=== PATIENT | female | born 1950 | race Caucasian/White ===

== ENCOUNTER 2017-03-15 10:33 | Emergency (ER) | payer OTHER ==
[~2017-03-15] VITALS: Ht 175.3 cm; Wt 79.8 kg
[2017-03-15 10:50] VITALS: BP 130/73; Ht 175.3 cm; Wt 79.8 kg
== END 2017-03-15 15:30 | disposition left against medical advice (07) ==
LOC: ED 10:33
DX: Z53.21 Procedure and treatment not carried out due to patient leaving prior to being seen by health care provider (principal)

== ENCOUNTER 2020-05-27 17:04 | Emergency (ER) | payer OTHER ==
[~2020-05-27] VITALS: Ht 172.7 cm; Wt 81.2 kg
[2020-05-27 18:50] LABS: BASOPHIL % 1.5 % (0.2-1.3); PLATELET COUNT 212 x10^3mcL (179-408); RED CELL DISTRIBUTION WIDTH 13.8 % (12.3-17.7)
[2020-05-27 18:58] LABS: CALCIUM 9.2 mg/dL (8.5-10.1); CARBON DIOXIDE 28.2 mmol/L (21-32); CHLORIDE SERUM 94 mmol/L (98-107); CREATININE SERUM 0.8 mg/dL (0.6-1.0); GFR1 > 60 mL/min; GLUCOSE SERUM 90 mg/dL (74-106); SODIUM SERUM 133 mmol/L (136-145)
[2020-05-27 19:03] LABS: ALBUMIN 3.9 g/dL (3.4-5.0); ALKALINE PHOSPHATASE 96 U/L (46-116); ALT/SGPT 27 U/L (14-59); AST/SGOT 22 U/L (15-37); TOTAL PROTEIN, SERUM 7.3 g/dL (6.4-8.2)
[2020-05-27 20:09] VITALS: BP 154/66
== END 2020-05-27 20:09 | disposition home or self-care (01) ==
LOC: ED 17:04
PROVIDERS: Student in an Organized Health Care Education/Training Program
DX: I10 Essential (primary) hypertension (principal); E11.9 Type 2 diabetes mellitus without complications; E78.00 Pure hypercholesterolemia, unspecified